=== PATIENT | male | born 2000 | race Caucasian/White ===

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

== ENCOUNTER 2019-11-11 05:36 | Emergency (ER) | payer SELFPAY ==
[2019-11-11 05:42] VITALS: BP 132/86; PULSE 96
--- NOTE | 2019-11-11 05:56 | EDM.PDOCBH ---
ED HPI GENERAL MEDICAL PROBLEM - General Chief Complaint: Drug or Alcohol Abuse Stated Complaint: [facility] Time Seen by Provider: 11/11/19 05:40 Source of Information: Reports: Patient History Limitations: Reports: No Limitations - History of Present Illness INITIAL COMMENTS - FREE TEXT/NARRATIVE: This is a 19-year-old male. He apparently is a heavy meth user including smoking meth and snorting meth. He has been smoking meth most of the day yesterday. He got an ambulance ride to the ER because he wants help getting off meth. He asked me questions is why I cannot make him get off meth I explained to him that I do not have control over what he does and he has to make the decision and no one can make it for him. He has been in alf several times due to his drug use. He denies any recent illnesses no colds coughs fever chills nausea vomiting or diarrhea. - Related Data Allergies Allergy/AdvReac Type Severity Reaction Status Date / Time bee pollen Allergy Severe Anaphylactic Verified 11/11/19 05:39 Shock cetirizine [From Zyrtec] Allergy Hives Verified 11/11/19 05:39 loratadine [From Claritin] Allergy Hives Verified 11/11/19 05:39 pistachio nut Allergy Hives Verified 11/11/19 05:39 Home Meds: Home Meds LORazepam [Ativan] 1 mg PO Q6H PRN #5 tablet 11/11/19 [Rx] Past Medical History HEENT History: Reports: Other (See Below) Other HEENT History: seasonal allergies Cardiovascular History: Reports: Heart Murmur Respiratory History: Reports: Asthma Psychiatric History: Reports: ADHD, Addiction, Anxiety, Depression, PTSD - Past Surgical History HEENT Surgical History: Reports: Adenoidectomy, Tonsillectomy Social & Family History - Family History Family Medical History: Noncontributory - Tobacco Use Smoking Status *Q: Unknown Ever Smoked - Caffeine Use Caffeine Use: Reports: None - Recreational Drug Use Recreational Drug Use: Yes Drug Use in Last 12 Months: Yes Recreational Drug Type: Reports: Methamphetamine Recreational Drug Use Frequency: Binges ED ROS GENERAL - Review of Systems Review Of Systems: See Below Constitutional: Denies: Fever, Chills HEENT: Reports: No Symptoms Respiratory: Denies: Shortness of Breath, Cough Cardiovascular: Denies: Chest Pain Endocrine: Reports: No Symptoms GI/Abdominal: Denies: Abdominal Pain, Diarrhea, Nausea, Vomiting : Reports: No Symptoms Musculoskeletal: Reports: No Symptoms Skin: Reports: No Symptoms Neurological: Reports: Other (He states he does not remember a lot since he smokes meth.) Psychiatric: Reports: No Symptoms Hematologic/Lymphatic: Reports: No Symptoms ED EXAM, BEHAVIORAL HEALTH - Physical Exam Exam: See Below Exam Limited By: No Limitations General Appearance: Alert, WD/WN, No Apparent Distress Eye Exam: Bilateral Eye: Normal Inspection Ears: Normal External Exam Nose: Normal Inspection, Other (Thinning of the nasal septum but no active bleeding) Throat/Mouth: Normal Inspection, Normal Lips, Normal Voice, No Airway Compromise Head: Normocephalic Neck: Supple Respiratory/Chest: No Respiratory Distress, Lungs Clear, Normal Breath Sounds Cardiovascular: Regular Rate, Rhythm, No Murmur GI/Abdominal: Soft Back Exam: Full Range of Motion Extremities: Normal Inspection, Normal Range of Motion Neurological: Alert, Normal Mood/Affect, No Motor/Sensory Deficits, Oriented x 3, Other (He has a hard time remembering when he last smoked pot but he finally realized it was all day yesterday. The last time he slept he says was on the seventh.) Psychiatric: Alert, Normal Affect, Normal Cognition, Oriented, Other (He does not appear to be in any distress and is calm.) Skin Exam: Warm, Dry COURSE, BEHAVIORAL HEALTH COMP - Course Vital Signs: Last Vital Signs Temp 97.8 F 11/11/19 05:39 Pulse 96 11/11/19 05:39 Resp 20 11/11/19 05:39 BP 132/86 11/11/19 05:39 Pulse Ox 94 L 11/11/19 05:39 Orders, Labs, Meds: Active Orders 24 hr Category Date Time Status UA W/MICROSCOPIC [URIN] Stat Lab 11/11/19 05:48 Ordered Sodium Chloride 0.9% [Normal Saline] 1,000 ml Med 11/11/19 06:00 Active IV ASDIRECTED Medication Orders Sodium Chloride (Normal Saline) 1,000 mls @ 1,000 mls/hr IV ASDIRECTED BYRON Last Admin: 11/11/19 06:06 Dose: 1,000 mls/hr Documented by: DANNY Laboratory Tests 07/12/20 07/12/20 Range/Units 05:55 05:55 WBC 12.70 H (4.23-9.07) K/mm3 RBC 4.75 (4.63-6.08) M/mm3 Hgb 14.6 (13.7-17.5) gm/dl Hct 42.8 (40.1-51.0) % MCV 90.1 (79.0-92.2) fl MCH 30.7 (25.7-32.2) pg MCHC 34.1 (32.2-35.5) g/dl RDW Std Deviation 39.6 (35.1-43.9) fL Plt Count 296 (163-337) K/mm3 MPV 10.2 (9.4-12.3) fl Neut % (Auto) 70.5 H (34.0-67.9) % Lymph % (Auto) 20.3 L (21.8-53.1) % [place] % (Auto) 8.2 (5.3-12.2) % Eos % (Auto) 0.2 L (0.8-7.0) Baso % (Auto) 0.6 (0.1-1.2) % Neut # (Auto) 8.96 H (1.78-5.38) K/mm3 Lymph # (Auto) 2.58 (1.32-3.57) K/mm3 [place] # (Auto) 1.04 H (0.30-0.82) K/mm3 Eos # (Auto) 0.03 L (0.04-0.54) K/mm3 Baso # (Auto) 0.07 (0.01-0.08) K/mm3 Manual Slide Review Normal smear Sodium 141 (136-145) mEq/L Potassium 3.7 (3.5-5.1) mEq/L Chloride 103 (98-107) mEq/L Carbon Dioxide 25 (21-32) mEq/L Anion Gap 16.7 H (5-15) BUN 15 (7-18) mg/dL Creatinine 1.0 (0.7-1.3) mg/dL Est Cr Clr Drug Dosing 120.96 mL/min Estimated GFR (MDRD) > 60 (>60) mL/min BUN/Creatinine Ratio 15.0 (14-18) Glucose 106 (74-106) mg/dL Calcium 9.5 (8.5-10.1) mg/dL Total Bilirubin 1.4 H (0.2-1.0) mg/dL AST 13 L (15-37) U/L ALT 28 (16-63) U/L Alkaline Phosphatase 54 (46-116) U/L Total Protein 7.6 (6.4-8.2) g/dl Albumin 4.5 (3.4-5.0) g/dl Globulin 3.1 gm/dL Albumin/Globulin Ratio 1.5 (1-2) Medications Generic Name Dose Route Start Last Admin Trade Name Freq PRN Reason Stop Dose Admin Sodium Chloride 1,000 mls @ 1,000 mls/hr 11/11/19 06:00 11/11/19 06:06 Normal Saline IV 1,000 mls/hr ASDIRECTED BYRON Administration Discharge vs Psych Eval/Treatment:: 11/11/19 06:57 The patient's blood work is essentially normal. He is not able to give us a urine sample to get a urine drug screen at this time. 11/11/19 07:09 I spoke to the patient again regarding his meth habit. Only he can make the decision to stop. I will provide a small prescription for some Ativan to help him through the anxiety and withdrawal but it is up to him to call [facility] and be there at 8 AM on Tuesday for open enrollment so he can be evaluated and treated. Departure - Departure Time of Disposition: 07:10 Disposition: Home, Self-Care 01 Condition: Fair Clinical Impression: Substance abuse, Methamphetamine addiction - Discharge Information *PRESCRIPTION DRUG MONITORING PROGRAM REVIEWED*: Not Applicable *COPY OF PRESCRIPTION DRUG MONITORING REPORT IN PATIENT ARNAUD: Not Applicable Prescriptions: LORazepam [Ativan] 1 mg PO Q6H PRN #5 tablet PRN Reason: Anxiety Instructions: Substance Use Disorder Referrals: PCP,Unknown [Ordering Only Provider] - Forms: ED Department Discharge Additional Instructions: Use the Ativan as needed to help with the withdrawal symptoms, do not use methamphetamines before you see [facility] on Tuesday at 8 AM there is open enrollment on Tuesday and they will see you and evaluate you and help you with your addiction, I gave you a paper and handout with address and phone number for [facility] [employer], return to the ER if needed Sepsis Event Note (ED) - Evaluation Sepsis Screening Result: No Definite Risk - Focused Exam Vital Signs: Vital Signs Temp Pulse Resp BP Pulse Ox 11/11/19 05:39 97.8 F 96 20 132/86 94 L - My Orders Last 24 Hours: My Active Orders 11/11/19 05:48 UA W/MICROSCOPIC [URIN] Stat 11/11/19 06:00 Sodium Chloride 0.9% [Normal Saline] 1,000 ml IV ASDIRECTED - Assessment/Plan Last 24 Hours: My Active Orders 11/11/19 05:48 UA W/MICROSCOPIC [URIN] Stat 11/11/19 06:00 Sodium Chloride 0.9% [Normal Saline] 1,000 ml IV ASDIRECTED
[2019-11-11] MEDS ORDERED: Sodium Chloride 0.9% 1,000 ML IV SCH (06:00)
== END 2019-11-11 07:40 | disposition home or self-care (01) ==
LOC: JD.ED 05:36
DX: F15.20 Other stimulant dependence, uncomplicated (principal); F19.10 Other psychoactive substance abuse, uncomplicated; F41.9 Anxiety disorder, unspecified; F32.9 Major depressive disorder, single episode, unspecified; Z88.1 Allergy status to other antibiotic agents; Z91.030 Bee allergy status; Z88.8 Allergy status to other drugs, medicaments and biological substances; Z91.018 Allergy to other foods
CPT/HCPCS: 36415; 80053; 85025; 99282; J7030; 99283